=== PATIENT | male | born 1990 ===

== ENCOUNTER 2018-02-16 21:01 | Emergency (ER) | payer SELFPAY ==
[2018-02-16 22:11] VITALS: O2SAT 100
--- NOTE | 2018-02-16 23:04 | C.PDOC ---
History Of Present Illness Patient presenting to ED with profuse sweating, states has been feeling nauseous , vomiting, and has tremors. Patient admits to drinking 12-15 beers a day along with vodka and whiskey on a regular basis. Patient reports he just started a detox program and is going through withdrawal. Denies fever, chills, shortness of breath. Time Seen by Provider: 02/16/18 23:04 Chief Complaint (Nursing): Medical Clearance History Per: Patient History/Exam Limitations: no limitations Onset/Duration Of Symptoms: Days Current Symptoms Are (Timing): Still Present Severity: Moderate Pain Scale Rating Of: 5 Past Medical History Reviewed: Historical Data, Nursing Documentation, Vital Signs Vital Signs: Last Vital Signs Temp 98.2 F 02/17/18 00:51 Pulse 76 02/17/18 00:51 Resp 16 02/17/18 00:51 BP 132/79 02/17/18 00:51 Pulse Ox 100 02/17/18 01:04 Surgical History: No Surg Hx Family History: States: No Known Family Hx - Social History Hx Alcohol Use: Yes Hx Substance Use: Yes Review Of Systems Constitutional: Positive for: Sweats. Negative for: Fever, Chills Cardiovascular: Negative for: Chest Pain Respiratory: Negative for: Shortness of Breath Gastrointestinal: Positive for: Nausea, Vomiting Neurological: Positive for: Other (tremors). Negative for: Weakness, Numbness Psych: Positive for: Withdrawal Physical Exam - Physical Exam Appears: Non-toxic Skin: Diaphoretic (mild) Head: Normacephalic Eye(s): bilateral: Normal Inspection Oral Mucosa: Moist Neck: Trachea Midline, Supple Chest: Symmetrical Cardiovascular: Rhythm Regular Respiratory: No Rales, No Rhonchi, No Wheezing Gastrointestinal/Abdominal: Soft, No Tenderness, No Distention Neurological/Psych: Oriented x3, Other (mildy tremulous) Gait: Steady ED Course And Treatment - Laboratory Results Result Diagrams: 02/16/18 23:21 02/16/18 23:21 O2 Sat by Pulse Oximetry: 100 (RA) Pulse Ox Interpretation: Normal Progress Note: Labs, ativan, librium, zofran, urinalysis ordered. 1 am pt feels better. No n/v or tremors Disposition Counseled Patient/Family Regarding: Studies Performed, Diagnosis, Need For Followup, Rx Given - Disposition Referrals: [facility] [Outside] Disposition: HOME/ ROUTINE Disposition Time: 23:04 Condition: FAIR Instructions: Alcohol Abuse and Alcoholism (DC) Forms: [employer] [facility] ([employer]) - Clinical Impression Clinical Impression: Alcohol abuse - Scribe Statement The provider has reviewed the documentation as recorded by the Fransiscoibe Don Cisnerosed Provider Attestation: All medical record entries made by the Kameron were at my direction and personally dictated by me. I have reviewed the chart and agree that the record accurately reflects my personal performance of the history, physical exam, medical decision making, and the department course for this patient. I have also personally directed, reviewed, and agree with the discharge instructions and disposition.
[2018-02-16] MEDS ORDERED: Sodium Chloride 0.9% 1,000 ML IV ONE (23:07)
[2018-02-16 23:29] LABS: URINE BILIRUBIN NEGATIVE (NEGATIVE); URINE BLOOD NEGATIVE (NEGATIVE); URINE CLARITY Clear (Clear); URINE COLOR Straw (YELLOW); URINE GLUCOSE (UA) NORMAL (Normal); URINE LEUKOCYTE ESTERASE NEG Leu/uL (Negative); URINE PROTEIN 1+ mg/dL (NEGATIVE); URINE UROBILINOGEN NORMAL mg/dL (0.2-1.0)
[2018-02-16 23:32] LABS: BASO % 0.8 % (0.0-2.0); EOS % 0.8 % (0.0-4.0); HEMOGLOBIN 14.8 g/dL (12.0-18.0); LYMPH # 1.4 K/uL (1.0-4.3); LYMPH % 34.1 % (20.0-40.0); MEAN CELL VOLUME 96.7 fL (80.0-94.0); MEAN CORPUSCULAR HEMOGLOBIN 33.6 pg (27.0-31.0); MEAN CORPUSCULAR HGB CONC 34.7 g/dL (33.0-37.0); MEAN PLATELET VOLUME 9.5 fL (7.2-11.7); MONO # 0.6 K/uL (0.0-0.8); MONO % 15.7 % (0.0-10.0); NEUT % 48.6 % (50.0-75.0); RBC 4.4 Mil/uL (4.40-5.90); RED CELL DISTRIBUTION WIDTH 12.9 % (11.5-14.5)
[2018-02-16 23:36] LABS: ALB/GLOB RATIO 1.4 (1.0-2.1); ALBUMIN 5.3 g/dL (3.5-5.0); ALT/SGPT 77 U/L (21-72); AST/SGOT 81 U/L (17-59); BLOOD UREA NITROGEN 5 mg/dL (9-20); CALCIUM 9.6 mg/dl (8.6-10.4); GFR AFRICAN-AMERICAN > 60; GFR NON-AFRICAN AMERICAN > 60
[2018-02-16 23:43] LABS: BARBITURATES, UR NEGATIVE (NEGATIVE); OPIATES, UR NEGATIVE (NEGATIVE); PHENCYCLIDINE, UR NEGATIVE (NEGATIVE)
[2018-02-16 23:46] LABS: BENZODIAZEPINES, UR POSITIVE (NEGATIVE)
[2018-02-17 00:51] VITALS: BP 132/79; PULSE 76; RESP 16; TEMP 98.2
== END 2018-02-17 01:42 | disposition home or self-care (01) ==
LOC: C.ER 21:01
DX: F10.10 Alcohol abuse, uncomplicated (principal); Y90.0 Blood alcohol level of less than 20 mg/100 ml
CPT/HCPCS: 80053; 81001; 85025; 96374; 96375; 99283; G0480; J2060; J2405; J2765; J7030